=== PATIENT | female | born 1980 | race Caucasian/White ===

== ENCOUNTER 2017-12-14 15:46 | Emergency (ER) | payer OTHER, SELFPAY ==
[2017-12-14 15:49] VITALS: BP 154/99; PULSE 134; RESP 24; TEMP 36.3; O2SAT 98; BMI 30.2
--- NOTE | 2017-12-14 16:18 | PC.NURSE ---
pt refusing assessment at this time time. states You are not going to help me, so there is no reason for me to talk to you. Provider aware. Pt offered warm blanket and to discuss concerns pt refused. no new orders at this time.
--- NOTE | 2017-12-14 16:26 | ED.ALCOHOL ---
HPI - Alcohol General Chief Complaint: Toxicology Problem Stated Complaint: STATES ALCHOLIC AND NEEDS HELP History of Present Illness HPI narrative: HPI 37-year-old female with history of EtOH abuse (binge type drinking) presents after drinking requesting treatment to make her stop drinking. Patient is a spouse, has a PCP through the [email or web address]. Patient reports a history of binge drinking, will drink when her is at home and childcare duties can be addressed by him. Otherwise will be largely sober. Patient reports that her has been available to take care of her child over the last ~1 week. Patient been drinking throughout that week. Patient reports that this is interfered with her life. Patient is without SI, HI, or recent illness. Patient denies prior alcohol withdraw seizures, hallucinations, or DTs. Patient has attended AA once or twice while living in [facility]. M/S/F/SocHx notable for: please see HPI; remainder reviewed with patient and in chart. ROS: Negative constitutional, eye, cardiovascular, pulmonary, GI, , MSK, skin, neurologic, psychiatric, endocrine unless noted in the HPI. Exam Gen: pleasant, mildly agitated/anxious, otherwise non-toxic appearing, mild slurring of speech. HEENT: NC, AT, PEERL, EOMI. Resp: Clear to auscultation bilaterally, normal work of breathing, no accessory muscle usage. Card: Regular rate and rhythm with no murmurs, rubs, or gallops, extremities warm and well perfused. GI: nontender to palpation throughout all quadrants, no rebound, no guarding. : No suprapubic tenderness to palpation. MSK: No visible deformities, strength and tone without visually appreciable deficit. Skin: Normal color with no visible lesions. Neuro: alert, oriented, moving all extremities without appreciable deficit, mild slurring of speech, but clinically with capacity and carrying on a normal conversation with good insight. Psych: mildly anxious, intermittently belligerent and tearful. MDM Previous chart, nursing note, labs, imaging, and vitals reviewed. A/P: 37-year-old female with history of EtOH abuse (binge type drinking) presents after drinking requesting treatment to make her stop drinking. Patient mildly intoxicated by history and exam, with clear capacity and insight, vital signs notable for mild tachycardia consistent with the patient's psychomotor agitation observed during the exam, history, exam, ROS without identifiable high-risk features for an emergent medical process. As patient has had complications from prior episodes of alcohol cessation she is appropriate for outpatient management. Discussion was had with the patient regarding outpatient treatment options, the patient was open to outpatient follow-up with her PCP, attending AA, as well as provision of further local resources. Discussed medication options to alleviate any possible withdrawal symptoms. On being informed that gabapentin would be prescribed patient became frustrated, stated that she wanted another doctor and that her treatment was bullshit. As the patient clinically had: good capacity and insight and as there are no identifiable emergent medical processes, she is appropriate for outpatient management. Discharge prescriptions were provided. Resources for community follow-up were also provided in writing and the patient discharged. Impression: EtOH abuse (please reference below for remainder of encounter information) Related Data Previous Rx's Medication Instructions Recorded gabapentin See Label Instructions .ROUTE 12/14/17 .COMPLEX #20 cap [facility] Social History Smoking Status: Never smoker Exam Initial Vital Signs Initial Vital Signs: Vital Signs Temperature 97.3 F L 12/14/17 15:49 Pulse Rate 134 H 12/14/17 15:49 Respiratory Rate 24 12/14/17 15:49 Blood Pressure 154/99 H 12/14/17 15:49 Pulse Oximetry 98 12/14/17 15:49 Course Vital Signs - 8 hr 12/14/17 15:49 Temperature 97.3 F L Pulse Rate 134 H Respiratory Rate 24 Blood Pressure 154/99 H Pulse Oximetry 98 Discharge Plan Departure Patient Disposition: Home, Self-Care Clinical Impression: Alcoholic intoxication Activity Restrictions/Additional Instructions: You were in seen in the [facility] Emergency Department for evaluation of alcohol withdrawal. Please read and follow all the instructions below. You have been prescribed gabapentin for treatment of withdrawal symptoms. Please read and follow all of the instructions below. Please discontinue drinking alcohol and follow up with your primary care physician tomorrow for further care. You may also contact [facility] at for further alcohol and substance abuse treatment options. [facility] is located at [address] [place] [id number]. You may contact the local Alcoholics Anonymous at: [email or web address] If you have any new symptoms or if you are at all concerned about your health please return immediately to the emergency department. If you do not have a primary care physician, please contact [facility], [facility] at [phone], [facility] at [phone], or [facility] at [phone] to arrange follow up care. If you have health insurance, please also contact your insurer for a list of accepting providers under your policy, you may contact these providers for further health care. Your care today was limited to identifying and treating emergent medical problems only. Many people have subtle differences in their test results that require follow up with their outpatient physician(s) to correctly determine if this represents a normal variation or concerning abnormality with respect to your specific health. The care given to you today was limited to identifying and treating emergent medical problems - you need to request a copy of all of your medical records from today's visit and follow up with your outpatient physician(s) to review both today's visit and your overall health. Alcohol Withdrawal Alcohol withdrawal is a condition that happens when a person who often drinks large amounts of alcohol suddenly stops drinking alcohol. People with alcohol withdrawal often have a headache, a stomach ache, and trouble sleeping. But sometimes, the symptoms are much more serious and even life threatening. Mild to moderate withdrawal can be treated at home. You are being treated for alcohol withdrawal * Call your primary care physician tomorrow to schedule a follow up appointment in 3-4 days. * Do not drink any further alcohol. * Call Alcoholics Anonymous to obtain a sponsor and to start attending meetings. * Take gabapentin as prescribed to help reduce withdrawal symptoms (400 mg three times a day for days 1 through 4, then 400 mg two times a day for days 5-8). * Return immediately to the emergency room if you have hallucinations, fevers, sweating, a racing heart, confusion, increasing tremors, anxiety, chest pain, seizures or are otherwise concerned about your health. * Please read the below information regarding alcohol withdrawal and regarding Gabapentin. Symptoms of Alcohol Withdrawal * Mild symptoms include: trouble sleeping, trembling, feeling anxious, having an upset stomach and not wanting to eat, headache, sweating, feeling like your heart is beating fast, beating hard, or seems to skip a beat (these heartbeat changes are called palpitations). These symptoms often start within 6 hours after a person stops drinking. They might go away within 1 or 2 days. * Some people also get more serious symptoms, including:, Seizures (these can make a person pass out, or move or behave strangely. With alcohol withdrawal, seizures usually happen within 12 to 48 hours after the person stops drinking) and hallucinations. * Delirium tremens or DT, this is the most serious form of alcohol withdrawal. Symptoms include: hallucinations, feeling confused about where you are or who you are, feeling very upset and anxious, uncontrolled shaking, a fast heartbeat, high blood pressure, fever, and sweating. These symptoms start 2 to 4 days after a person stops drinking and can last up to 5 days. Gabapentin - How To Use * Read the Medication Guide provided by your pharmacist before you start taking gabapentin and each time you get a refill. If you have any questions, ask your doctor or pharmacist. * Swallow this medication whole. Do not crush or chew sustained-release tablets. Doing so can release all of the drug at once, increasing the risk of side effects. Also, do not split sustained-release tablets unless they have a score line and your doctor or pharmacist tells you to do so. Swallow the whole or split tablet without crushing or chewing. * Antacids containing aluminum or magnesium may interfere with the absorption of this medication. Therefore, if you are also taking an antacid, it is best to take gabapentin at least 2 hours after taking the antacid. Gabapentin Side Effects * Drowsiness, loss of coordination, and dizziness may occur. If any of these effects persist or worsen, tell your doctor or pharmacist promptly. * Tell your doctor right away if you have any serious side effects, including: swelling of the hands/ankles/feet. * A small number of people who take anticonvulsants for any condition (such as seizures, bipolar disorder, pain) may experience depression, suicidal thoughts/attempts, or other mental/mood problems. Tell your doctor right away if you or your family/caregiver notice any unusual/sudden changes in your mood, thoughts, or behavior including signs of depression, suicidal thoughts/attempts, thoughts about harming yourself. * Get medical help right away if you have any serious side effects, including: unusual fever, swollen glands, yellowing skin/eyes, unusual tiredness, dark urine, change in the amount of urine, chest pain. * A very serious allergic reaction to this drug is rare. However, get medical help right away if you notice any symptoms of a serious allergic reaction, including: rash, itching/swelling (especially of the face/tongue/throat), severe dizziness, trouble breathing. * This is not a complete list of possible side effects. If you notice other effects not listed above, contact your doctor or pharmacist. Gabapentin Precautions * Before taking gabapentin, tell your doctor or pharmacist if you are allergic to it; or to gabapentin enacarbil; or if you have any other allergies. This product may contain inactive ingredients, which can cause allergic reactions or other problems. Talk to your pharmacist for more details. * Before using this medication, tell your doctor or pharmacist your medical history, especially of: kidney disease, mental/mood problems (such as depression, thoughts of suicide), use/abuse of drugs/alcohol. * This drug may make you dizzy or drowsy. Do not drive, use machinery, or do any activity that requires alertness until you are sure you can perform such activities safely. Limit alcoholic beverages. * Before having surgery, tell your doctor or dentist about all the products you use (including prescription drugs, nonprescription drugs, and herbal products). * Older adults may be more sensitive to the side effects of this drug, especially swelling of the hands/ankles/feet, dizziness, or loss of coordination. Dizziness and loss of coordination can increase the risk of falling. Gabapentin Drug Interactions * Tell your doctor or pharmacist if you are taking other products that cause drowsiness including alcohol, antihistamines (such as cetirizine, diphenhydramine), drugs for sleep or anxiety (such as alprazolam, diazepam, zolpidem), muscle relaxants, and narcotic pain relievers (such as codeine, morphine). * Check the labels on all your medicines (such as allergy or [id number] products) because they may contain ingredients that cause drowsiness. Ask your pharmacist about using those products safely. * Do not use this medication with other medications that contain gabapentin (including gabapentin enacarbil). * This medication may interfere with certain laboratory tests for urine protein. Make sure laboratory personnel and all your doctors know you use this drug. Prescriptions: New gabapentin 400 mg capsule See Label Instructions .ROUTE .COMPLEX Qty: 20 RF: 0
== END 2017-12-14 16:28 | disposition home or self-care (01) ==
LOC: ED 16:59
PROVIDERS: Emergency Provider Emergency Medicine
DX: F10.10 Alcohol abuse, uncomplicated (principal)
CPT/HCPCS: 99282